=== PATIENT | female | born 1995 | race African-American/Black ===

== ENCOUNTER 2019-12-05 18:09 | Emergency (ER) | payer BC ==
[~2019-12-05] VITALS: Ht 157.5 cm; Wt 54.4 kg
[2019-12-05 19:07] LABS: INFLUENZA A ANTIGEN Negative (Negative); INFLUENZA B ANTIGEN Negative (Negative)
[2019-12-05] MEDS ORDERED: TESSALON PERLE100 MG PO (20:18)
[2019-12-05] MEDS ORDERED: ZPAK PO (20:18)
[2019-12-05 20:29] VITALS: BP 122/67
== END 2019-12-05 20:29 | disposition home or self-care (01) ==
LOC: M.ERS 18:09
PROVIDERS: Nurse Practitioner Family
DX: H66.91 Otitis media, unspecified, right ear (principal); J20.9 Acute bronchitis, unspecified; Z86.2 Personal history of diseases of the blood and blood-forming organs and certain disorders involving the immune mechanism; Z88.0 Allergy status to penicillin

== ENCOUNTER 2021-01-18 10:33 | Emergency (ER) | payer BC ==
[~2021-01-18] VITALS: Ht 157.5 cm; Wt 54.4 kg
[~2021-01-18 10:33] MED LIST: TESSALON PERLE100 MG PO; ZPAK PO
[2021-01-18 11:00] LABS: URINE BLOOD 3+ (Negative); URINE CLARITY CLEAR; URINE COLOR YELLOW; URINE GLUCOSE-RANDOM NEGATIVE (Negative); URINE LEUKOCYTES NEGATIVE (Negative); URINE NITRITE NEGATIVE (Negative); URINE PROTEIN 1+ (Negative); URINE SPECIFIC GRAVITY >= 1.030 (1.005-1.030); URINE UROBILINOGEN 0.2 E.U./dl (0.2-1.0)
[2021-01-18 11:05] LABS: ICTOTEST (BILI CONFIRMATORY) Negative (Negative); URINE BILIRUBIN 1+ (Negative); URINE KETONES 3+ (Negative)
[2021-01-18 11:08] LABS: BACTERIA 1-9 Few /HPF (None Seen); SQUAMOUS 4-10 Moderate /LPF (0-3); URINE RBC 3-10 Few /HPF (0-2); URINE WBC 0-5 Rare /HPF (0-5)
[2021-01-18 11:09] LABS: CASTS None Seen /LPF (None Seen); CRYSTALS None Seen /LPF (None Seen); MUCUS 4-6 Moderate strn/LPF (None Seen)
[2021-01-18 12:39] VITALS: BP 95/61
--- NOTE | 2021-01-18 16:18 | EKG ---
[place] [address] ELECTROCARDIOGRAM REPORT Name: LEIDY HUGHES Room: [facility]#: [id number] Admission: 01/18/21 Attend Phys: Discharge: 01/18/21 Date of : 89 Date of Service: 01/18/21 1120 Report #: [id number] THIS REPORT FOR: //name// [facility] ED Test Date: 2021-01-18 Test Time: 11:20:58 Pat Name: LEIDY HUGHES Department: Room: Gender: [place] Mixer: : 1995 Requested By: Monroe Rick Order Number: [id number] MD: Jona Russ Measurements Intervals [place] Rate: 58 P: 22 [place]: 102 QRS: 43 QRSD: 82 T: 37 QT: 472 QTc: 464 Interpretive Statements Sinus rhythm Short [place] interval No previous ECG available for comparison Electronically Signed On 01-18-2021 16:18:38 [employer]ICAL RECORDS ANALYST by Jona Russ [email or web address] <ELECTRONICALLY SIGNED> By: Jona Russ MD, [facility] 01/18/21 1618 1120 1120 Jona Russ MD, [facility] /EPI
== END 2021-01-18 12:39 | disposition home or self-care (01) ==
LOC: M.ERS 10:33
PROVIDERS: Emergency Medicine
DX: R11.2 Nausea with vomiting, unspecified (principal); Z88.0 Allergy status to penicillin; Z86.2 Personal history of diseases of the blood and blood-forming organs and certain disorders involving the immune mechanism